=== PATIENT | female | born 1995 | race Two or more races ===

== ENCOUNTER 2023-11-15 17:05 | Emergency (ER) | payer OTHER ==
[2023-11-15 17:52] VITALS: BP 121/79; PULSE 73; RESP 18; TEMP 97.5; BMI 30.9
[2023-11-15 18:31] LABS: BASO % 0.6 % (0-2.0); EOS % 0.9 % (0-4.5); HEMATOCRIT 41.9 % (32.4-45.2); HEMOGLOBIN 13.9 GM/dL (10.7-15.3); LYMPH % 18.1 % (8-40); MCHC 33.2 g/dl (32.0-36.0); MEAN CELL VOLUME 87.4 fl (80-96); MEAN PLT VOLUME 9.7 fl (7.5-11.1); NEUT % 74.4 % (42.8-82.8); PLATELET COUNT 295 10^3/uL (134-434); RDW 14.3 % (11.6-15.6); WHITE BLOOD COUNT 12.2 K/mm3 (4.0-10.0)
[2023-11-15 18:48] LABS: POTASSIUM 3.9 mmol/L (3.5-5.1)
[2023-11-15 18:49] LABS: CALCIUM 9.2 mg/dL (8.5-10.1)
[2023-11-15 18:50] LABS: BLOOD UREA NITROGEN 7.8 mg/dL (7-18)
[2023-11-15 18:53] LABS: CREATININE 0.7 mg/dL (0.55-1.3)
[2023-11-15 19:39] LABS: EPI CELLS 16 /uL (0-25.1); HYALINE CASTS 1 /uL (0-3.1); URINE APPEARANCE CLOUDY; URINE BACTERIA 22 /uL (0-1359); URINE BILIRUBIN NEGATIVE (NEGATIVE); URINE COLOR ORANGE; URINE GLUCOSE (UA) NEGATIVE (NEGATIVE); URINE KETONE NEGATIVE (NEGATIVE); URINE LEUK ESTERASE 1+ (NEGATIVE); URINE NITRITE NEGATIVE (NEGATIVE); URINE PROTEIN TRACE (NEGATIVE); URINE RBC 10542 /uL (0-23.9); URINE WBC 33 /uL (0-25.8)
== END 2023-11-15 20:35 | disposition left against medical advice (07) ==
LOC: JER 17:05
DX: N93.9 Abnormal uterine and vaginal bleeding, unspecified (principal)
CPT/HCPCS: 36415; 80048; 81003; 84702; 84703; 85025; 86850; 86900; 86901; 87086; 99283-25